=== PATIENT | male | born 1975 | race Caucasian/White ===

== ENCOUNTER 2018-10-12 01:09 | Emergency (ER) | payer MEDICAID ==
[~2018-10-12] VITALS: Ht 165.1 cm; Wt 76.2 kg
[2018-10-12 01:17] VITALS: Ht 165.1 cm; Wt 76.2 kg
[2018-10-12 03:32] LABS: BASOPHIL % 0.2 % (0-2); PLATELET COUNT 224 x10^3mcL (130-400)
[2018-10-12 03:35] LABS: RED CELL DISTRIBUTION WIDTH 16.3 % (11.5-14.5)
[2018-10-12 03:55] LABS: CALCIUM 8.8 mg/dL (8.5-10.1); CARBON DIOXIDE 24.8 mmol/L (21-32); CHLORIDE SERUM 103 mmol/L (98-107); CREATININE SERUM 0.9 mg/dL (0.7-1.3); GFR1 > 60 mL/min; GLUCOSE SERUM 108 mg/dL (74-106); POTASSIUM SERUM 3.7 mmol/L (3.5-5.1); SODIUM SERUM 138 mmol/L (136-145)
[2018-10-12 04:00] LABS: ALBUMIN 3.9 g/dL (3.4-5.0); ALKALINE PHOSPHATASE 119 U/L (46-116); ALT/SGPT 22 U/L (16-63); AST/SGOT 21 U/L (15-37); BILIRUBIN TOTAL 0.72 mg/dL (0.20-1.00); LIPASE 157 IU/L (73-393); TOTAL PROTEIN, SERUM 7.5 g/dL (6.4-8.2)
[2018-10-12 04:28] VITALS: BP 109/64
== END 2018-10-12 04:28 | disposition home or self-care (01) ==
LOC: ED 01:09
PROVIDERS: Emergency Medicine
DX: R10.12 Left upper quadrant pain (principal); R07.89 Other chest pain; R11.2 Nausea with vomiting, unspecified; R19.7 Diarrhea, unspecified; I10 Essential (primary) hypertension; I25.10 Atherosclerotic heart disease of native coronary artery without angina pectoris; Z90.89 Acquired absence of other organs
CPT/HCPCS: J1200; J1885; J2270; J7030; Q0162

== ENCOUNTER 2019-02-15 15:52 | Emergency (ER) | payer MEDICAID ==
[~2019-02-15] VITALS: Ht 165.1 cm; Wt 75.7 kg
[2019-02-15 16:01] VITALS: Ht 165.1 cm; Wt 75.7 kg
[2019-02-15 16:54] LABS: BASOPHIL % 0.3 % (0-2); PLATELET COUNT 225 x10^3mcL (130-400); RED CELL DISTRIBUTION WIDTH 14.3 % (11.5-14.5)
[2019-02-15 17:16] LABS: CALCIUM 9.2 mg/dL (8.5-10.1); CARBON DIOXIDE 27.3 mmol/L (21-32); CHLORIDE SERUM 107 mmol/L (98-107); GFR1 > 60 mL/min; GLUCOSE SERUM 95 mg/dL (74-106); POTASSIUM SERUM 3.8 mmol/L (3.5-5.1); SODIUM SERUM 142 mmol/L (136-145)
[2019-02-15 17:20] LABS: ALBUMIN 3.8 g/dL (3.4-5.0); ALKALINE PHOSPHATASE 127 U/L (46-116); ALT/SGPT 31 U/L (16-63); AST/SGOT 14 U/L (15-37); BILIRUBIN TOTAL 0.57 mg/dL (0.20-1.00); LIPASE 134 IU/L (73-393); TOTAL PROTEIN, SERUM 6.9 g/dL (6.4-8.2)
[2019-02-15 19:07] LABS: UA SPECIFIC GRAVITY 1.015 (1.005-1.035); microscopic required? YES; urine erythrocyte TRACE (NEGATIVE)
[2019-02-15] MEDS ORDERED: BRILINTA90 M1 PO (20:01)
[2019-02-15] MEDS ORDERED: ASPIR 8181 MG PO (20:04)
[2019-02-15] MEDS ORDERED: LISINOPRIL10 MG PO (20:04)
[2019-02-15] MEDS ORDERED: LIPI20 PO (20:04)
[2019-02-15] MEDS ORDERED: NITROSTAT0.4 MG SL (20:06)
[2019-02-15] MEDS ORDERED: DIPHENHYDRAMINE50 MG PO (20:06)
[2019-02-15] MEDS ORDERED: ZOF4 PO (20:07)
[2019-02-16 00:15] VITALS: BP 119/69
== END 2019-02-16 00:15 | disposition short-term general hospital (02) ==
LOC: ED 15:52
PROVIDERS: Emergency Medicine
DX: R07.89 Other chest pain (principal); R10.32 Left lower quadrant pain; R11.10 Vomiting, unspecified; R19.7 Diarrhea, unspecified; I10 Essential (primary) hypertension; E78.00 Pure hypercholesterolemia, unspecified; Z98.890 Other specified postprocedural states; Z88.8 Allergy status to other drugs, medicaments and biological substances; Z88.9 Allergy status to unspecified drugs, medicaments and biological substances; Z88.1 Allergy status to other antibiotic agents
CPT/HCPCS: 83880; J2270; J2405; J3010; J7030; Q0092; Q0163

== ENCOUNTER 2019-03-27 11:19 | Inpatient (IN) | payer MEDICAID ==
[~2019-03-27] VITALS: Ht 165.1 cm; Wt 76.8 kg
[~2019-03-27 11:19] MED LIST: ASPIR 8181 MG PO; BRILINTA90 M1 PO; DIPHENHYDRAMINE50 MG PO; LIPI20 PO; LISINOPRIL10 MG PO; NITROSTAT0.4 MG SL; ZOF4 PO
--- NOTE | 2019-03-27 11:30 | NUR ---
PER PT HE HAS BEEN HAVING LUQ/LLQ PAIN FOR THREE DAYS. PT STS THAT HE HAS VOMITED 4X SINCE LAST NIGHT. PT DENIES ANY BLOOD IN EMESIS. PT STS THAT HE ALSO HAS BEEN HAVING DIARRHEA WITH BRIGHT RED BLOOD YESTERDAY AND TODAY IS HAS INCREASED WITH SOME BLACK STOOL. PT STS HE HAS A HX OF C DIFF.,COLITIS AND CAD. PT STS THAT HE IS ALSO HAVING SOME NECK PAIN THAT STARTED WHEN HE WAS VOMITING. POS. BOWEL SOUNDS IN ALL 4 QUAD. PT DENIES ANY BODY ACHES OR FEVERS. DENIES ANY ANURIA. RESP E/U. VSS. WILL CONTINUE TO MONITOR. NO DISTRESS NOTED.
--- NOTE | 2019-03-27 11:56 | NUR ---
PT STS THAT HE DOES HAVE A RIDE HOME IF NEEDED.
[2019-03-27 12:23] LABS: BASOPHIL % 0.3 % (0-2); PLATELET COUNT 209 x10^3mcL (130-400)
[2019-03-27 12:29] LABS: microscopic required? YES; urine erythrocyte TRACE (NEGATIVE)
[2019-03-27 12:54] LABS: ALBUMIN 3.7 g/dL (3.4-5.0); ALKALINE PHOSPHATASE 110 U/L (46-116); ALT/SGPT 22 U/L (16-63); AST/SGOT 16 U/L (15-37); BILIRUBIN TOTAL 0.64 mg/dL (0.20-1.00); CARBON DIOXIDE 23.8 mmol/L (21-32); CHLORIDE SERUM 105 mmol/L (98-107); GFR1 > 60 mL/min; GLUCOSE SERUM 103 mg/dL (74-106); LIPASE 99 IU/L (73-393); POTASSIUM SERUM 3.9 mmol/L (3.5-5.1); SODIUM SERUM 138 mmol/L (136-145); TOTAL PROTEIN, SERUM 6.8 g/dL (6.4-8.2)
--- NOTE | 2019-03-27 12:58 | NUR ---
DPT REQUESTING MEDICINE FOR 'ITCHING', PER PT 'I GET ITCHY WHEN I HAVE ANXIETY AND PAIN'. DR. SANTOS INFOMRED.
--- NOTE | 2019-03-27 14:22 | NUR ---
PT AMBULATED TO RESTROOM WITH STEADY GAIT. PT PROVIDING STOOL SAMPLE.
--- NOTE | 2019-03-27 14:31 | NUR ---
DR. SANTOS AT BEDSIDE FOR RECTAL EXAM.
[2019-03-27 15:04] LABS: BASOPHIL % 0.1 % (0-2); PLATELET COUNT 218 x10^3mcL (130-400); RED CELL DISTRIBUTION WIDTH 14.4 % (11.5-14.5)
--- NOTE | 2019-03-27 15:46 | NUR ---
REPORT GIVEN TO CHIKA SCHMIDT TO ASSUME CARE OF PT.
--- NOTE | 2019-03-27 15:53 | NUR ---
RECEIVED PT FROM ED VIA [facility], CAME IN DUE TO ABDOMINAL PAIN W/ NAUSEA, VOMITING AND BLOODY DIARRHEA. AAOX4. C/O MILD HEADACHE. DENIES DIZZINESS. ABLE TO FOLLOW COMMANDS. NO SOB NOTED, LUNG SOUNDS CTA. DENIES CHEST PAIN/PRESSURE, SB W/ BBB. STATED THAT HE HAS 6/10 LEFT LOWER TO MEDIAL ABDOMINAL PAIN DESCRIBED SHARP, WORSE ON MOVEMENT. DENIES NAUSEA/VOMITING AT THIS TIME. 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 ABDOMEN IS SOFT. BOWEL SOUNDS ACTIVE. PT STATED THAT HIS FIRST STOOL TODAY WAS BLACK AND SECOND STOOL HAS BRIGHTER RED BLOOD. IV SITE PATENT AND INTACT. RECEIVED PT FROM ED W/ NS ONGOING. SIDE RAILS UPX2. CALL LIGHT ON REACH. PRIMARY NURSE CHIKA AT BEDSIDE FOR CONTINUITY OF CARE
[2019-03-27 16:13] VITALS: BP 107/60
[2019-03-27 17:00] LABS: FREE T4 0.96 ng/dL (0.76-1.46); FREE THYROXINE INDEX 1.8 ug/dL (1.4-4.5); T4(THYROXINE) 5.1 ug/dL (4.7-13.3)
[2019-03-27 17:02] LABS: T3 TOTAL 1.15 ng/mL
[2019-03-27 17:18] LABS: MAGNESIUM 1.8 mg/dL (1.8-2.4); PHOSPHOROUS 3.7 mg/dL (2.5-4.9)
[2019-03-27 17:19] LABS: CHOLESTEROL/HDL RATIO 5.2
--- NOTE | 2019-03-27 19:00 | NUR ---
PT IS LAYING DOWN IN BED WITH HOB UP RESTING. PT LOOKS TO BE IN NO ACUTE DISTRESS AT THIS TIME AND IS COMPLAINING OF 6/10 PAIN TO THE ABD. RESPIRATIONS EVEN AND UNLABORED ON ROOM AIR. IV SITE PATENT WITH NO SIGNS OF ERYTHEMA OR SWELLING WITH IV FLUIDS INFUSING. PT DENIES ANY NAUSEA OR DIARRHEA AT THIS TIME. BED IN LOWEST POSITION, CALL LIGHT WITHIN REACH. WILL ENODRSE TO ONCOMING SHIFT.
--- NOTE | 2019-03-27 19:20 | NUR ---
CARE ASSUMED FROM OUTGOING RN. PT RESTING COMFORTABLY IN BED. C/O ABD PAIN 03/05 AFTER PAIN MEDICATION GIVEN BY DAY SHIFT RN. EVEN AND UNLABORED RESPIRATIONS ON RA. IV PATENT ADN INTACT RUNNING FLUIDS PER EMAR. C/O ITCHINESS DUE TO STRESS OF HOSPITAL VISIT. WILL MAKE DRJustin AWARE. BED IN LOWEST POSITION. SIDE RAILS UPX2. CALL LIGHT WITHIN REACH. WILL CONTINUE TO MONITOR.
[2019-03-27 20:44] LABS: AMPHETAMINE QUAL UR NONE DETECTED (See below)
[2019-03-27 21:20] VITALS: BP 103/56
[2019-03-27 21:40] VITALS: Ht 165.1 cm; Wt 76.8 kg
--- NOTE | 2019-03-28 00:40 | NUR ---
PT RESTING COMFORTABLY IN BED. EVEN AND UNLABORED RESPIRATIONS ON RA. ABD PAIN RESOLVING. AT A 5/10 AT THIS TIME. IV PATENT AND INTACT RUNNING FLUIDS PER EMAR. BED IN LOWEST POSITION. SIDE RAILS UP X2. CALL LIGHT WITHIN REACH. WILL CONTINUE TO MONITOR.
[2019-03-28 06:10] VITALS: BP 122/63
[2019-03-28 06:59] LABS: BASOPHIL % 0.4 % (0-2); PLATELET COUNT 184 x10^3mcL (130-400); RED CELL DISTRIBUTION WIDTH 14.3 % (11.5-14.5)
--- NOTE | 2019-03-28 07:05 | NUR ---
PT SLEPT IN INTERVALS THROUGHOUT THE SHIFT. ALL NEEDS TENDED TO AND MET. ALL SCHEDULED MEDICATIONS GIVEN. C/O PAIN MEDICATED PER EMAR. BED IN LOWEST POSITION. SIDE RAILS UPX2. CALL LIGHT WITHIN REACH. WILL ENDORSE TO ONCOMING SHIFT.
[2019-03-28 07:15] VITALS: BP 102/58
[2019-03-28 07:21] LABS: CALCIUM 7.7 mg/dL (8.5-10.1); CARBON DIOXIDE 24.4 mmol/L (21-32); CHLORIDE SERUM 107 mmol/L (98-107); CREATININE SERUM 0.9 mg/dL (0.7-1.3); GFR1 > 60 mL/min; GLUCOSE SERUM 72 mg/dL (74-106); MAGNESIUM 1.7 mg/dL (1.8-2.4); PHOSPHOROUS 2.9 mg/dL (2.5-4.9); SODIUM SERUM 141 mmol/L (136-145)
--- NOTE | 2019-03-28 07:52 | NUR ---
PATIENT IS SLEEPING IN BED, AROUSABLE. NO ACUTE DISTRESS NOTED AT THIS TIME. PATIENT DENIES ACTIVE BLEEDING AT THIS TIME. NS IV INFUSING TO LAC AT 100ML/HR, IV SITE CDI & PATENT, NO S/S OF INFILTRATION. CALL LIGHT WITHIN REACH, BED IN LOW POSITION. WILL CONTINUE TO MONITOR FOR CHANGES.
--- NOTE | 2019-03-28 08:40 | NUR ---
PATIENT WENT DOWN FOR CT. IV TO LAC SALINE LOCK. WILL FOLLOW UP WITH RADIOLOGY.
--- NOTE | 2019-03-28 14:57 | NUR ---
Discount pharmacy card and list to low cost medical clinics given to patient by Jonathon Olson.
--- NOTE | 2019-03-28 15:04 | NUR ---
PATIENT WAS C/O SHARP ABDOMINAL PAIN 04/05, MEDICATED PATIENT WITH MORPHINE PER PROTOCOL (SEE EMAR). PATIENT REPOSITIONED SELF FOR COMFORT, EDUCATED PATIENT ON PAIN MANAGEMENT. WILL CONTINUE TO MONITOR FOR CHANGES.
[2019-03-28 16:25] VITALS: BP 107/66
--- NOTE | 2019-03-28 17:50 | NUR ---
PATIENT RESTING IN BED, NO ACUTE DISTRESS NOTED. PATIENT DENIES SOB, ON ROOM AIR. NO ACUTE CHANGES NOTED THROUGH OUT SHIFT, PATIENT IS STABLE. PATIENT C/O ABDOMINAL DISCOMFORT, BUT TOLERABLE. NO ACTIVE BLEEDING NOTED. IV TO LAC, SALINE, NO S/S OF INFILTRATION. ALL QUESTIONS AND CONCERNS ADDRESSED, CALL LIGHT WITHIN REACH. WILL CONTINUE TO MONITOR AND ENDORSE REPORT TO NIGHT RN.
--- NOTE | 2019-03-28 19:10 | NUR ---
REPORT GIVEN TO BRAYAN BLAIR. PATIENT AT THIS TIME DECIDED HE WANTED TO LEAVE. PATIENT REMOVED HIS OWN IV TO LAC & ARMBANDS. PATIENT STATED " IM NOT GETTING THE TREATMEANT I NEED, MY PAIN IS NOT BEING MANAGE. IM LEAVING AND NOT SIGNING ANYTHING AT THIS TIME." NO AMA FORM SIGNED PATIENT WALKED OUT IMMEDIATELY. ENDORSE TO CHARGE NURSE MARI THAT PATIENT LEFT.
--- NOTE | 2019-03-28 19:37 | NUR ---
DR MCNEIL AWARE PATIENT LEFT AMA.
== END 2019-03-28 19:10 | disposition left against medical advice (07) | DRG 244 ==
LOC: ED 11:19 → MU 14:47 → DU 14:47 → MU 15:56 → DU 15:58 → MU 18:51
PROVIDERS: Emergency Medicine; ADMIT Internal Medicine
DX: K57.33 Diverticulitis of large intestine without perforation or abscess with bleeding (principal); E78.5 Hyperlipidemia, unspecified; I10 Essential (primary) hypertension; I25.2 Old myocardial infarction; Z79.82 Long term (current) use of aspirin; Z68.27 Body mass index [BMI] 27.0-27.9, adult; Z95.5 Presence of coronary angioplasty implant and graft
CPT/HCPCS: 84439; 87046; 87046-59; G0378; J1200; J2270; J2405; J2543; J3010; J7030

== ENCOUNTER 2019-08-08 14:43 | Inpatient (IN) | payer OTHER ==
[~2019-08-08] VITALS: Ht 165.1 cm; Wt 82.4 kg
--- NOTE | 2019-08-08 14:58 | NUR ---
EKG DONE IN TRIAGE BY EMT
[2019-08-08 15:19] LABS: BASOPHIL % 0.6 % (0-2); PLATELET COUNT 230 x10^3mcL (130-400); RED CELL DISTRIBUTION WIDTH 15.3 % (11.5-14.5)
--- NOTE | 2019-08-08 15:19 | NUR ---
PER PT STS THAT HE HAS HAD LEFT MID PRESSURE ABDOMINAL PAIN SINCE YESTERDAY WITH NAUSE AND VOMITING X4. PER PT STS THAT HE HAS NO DYSURIA. PT STS THAT HE HAS PRESSURE CHEST PAIN THAT IS RADIATING TO HIS LEFT ARM. PT STS THAT HE HAS NUMBNESS TO LEFT ARM. PT STS ABDOMINAL PAIN RADIATE TO HIS LEFT MID BACK. -FACIAL DROOP,-DRIFT, +EQUAL ELEMENTARY VOCAL MUSIC TEACHER. NO NEUROLOGICAL DEFICITS NOTED. PT STS THAT HE HAS HAD 6 IL'S AND 10 STENTS PLACED. PT IS ALERT AND ORIENTED, SPEAKING IN CLEAR AND FULL SENTENCES. PT PLACED ON CM. NO DISTRESS NOTED. VSS. RESP E/U. WILL CONTINUE TO MONITOR. MD MADE AWARE. SKINS ARE PINK, WARM AND DRY. EKG PERFROMED IN TRIAGE.
[2019-08-08 15:35] LABS: CALCIUM 8.9 mg/dL (8.5-10.1); CARBON DIOXIDE 29.2 mmol/L (21-32); CHLORIDE SERUM 104 mmol/L (98-107); GFR1 > 60 mL/min; GLUCOSE SERUM 66 mg/dL (74-106); POTASSIUM SERUM 3.7 mmol/L (3.5-5.1); SODIUM SERUM 139 mmol/L (136-145)
[2019-08-08 15:43] LABS: ALBUMIN 4.1 g/dL (3.4-5.0); ALKALINE PHOSPHATASE 137 U/L (46-116); ALT/SGPT 41 U/L (16-63); AST/SGOT 21 U/L (15-37); BILIRUBIN TOTAL 0.44 mg/dL (0.20-1.00); TOTAL PROTEIN, SERUM 7.3 g/dL (6.4-8.2)
--- NOTE | 2019-08-08 16:07 | NUR ---
MEDICATED PER EMAR.
--- NOTE | 2019-08-08 16:07 | NUR ---
PT STS THAT HIS "GIRLFRIEND" IS GOING TO PICK HIM UP FROM [facility].
--- NOTE | 2019-08-08 17:57 | NUR ---
PT STS THAT HE NO LONG HAS ITCHING, BUT THAT HIS ABDOMINLA PAIN IS STILL 7/10. DR. GUZMAN MADE AWARE. VSS. RESP E/U. WILL CONTINUE TO MONITOR.
--- NOTE | 2019-08-08 18:20 | NUR ---
REPORT GIVEN TO NILSON SCHMIDT TO ASSUME CARE OF PT.
--- NOTE | 2019-08-08 18:33 | NUR ---
SPOKE TO NILSON SCHMIDT AND STS ROOM IS NOT CLEANA AND TO BRING PT UP AT 1900.
--- NOTE | 2019-08-08 19:27 | NUR ---
REPORT GIVEN TO MARTHA RN TO ASSUME CARE OF PT.
--- NOTE | 2019-08-08 19:34 | NUR ---
RECEIVED PT FROM ED VIA ERDELORIS, CAME IN DUE TO CHEST PAIN AND ABDOMINAL PAIN X4 DAYS. AAOX4. DENIES HEADACHE/DIZZINESS. ABLE TO FOLLOW COMMANDS. C/O MILD SOB, NO COUGH, O2 SAT=98%, RA. STATED THAT HE HAS 4/10 LEFT SIDED CHEST PAIN RADIATING ON THE LEFT ARM AND SHOULDER, SR W/ BBB ON THE MONITOR. DENIES NUMBNESS/TINGLING SENSATION. C/O 8/10 LEFT LOWER ABDOMINAL PAIN RADIATING ON THE MID-ABDOMEN AND MID-BACK. C/O MILD NAUSEA. HAD 2 LOOSE BM'S TODAY. VOIDS. IV SITE PATENT AND INTACT. C/O GENERALIZED BODY ITCHINESS, NO RASHES/ERYTHEMA NOTED. SIDE RAILS UPX2. CALL LIGHT ON REACH. ENDORSED TO PRIMARY NURSE AMINA FOR CONTINUITY OFCARE
[2019-08-08 19:43] LABS: MAGNESIUM 1.7 mg/dL (1.8-2.4)
[2019-08-08 19:46] LABS: CHOLESTEROL/HDL RATIO 4.5
[2019-08-08 19:56] VITALS: BP 127/61
[2019-08-08 20:04] VITALS: Ht 165.1 cm; Wt 82.4 kg
--- NOTE | 2019-08-08 22:30 | NUR ---
MEDICATED PT WITH NORCO PO FOR 6/10 AND PAIN, PT RESTING IN BED, NO ACUTE DISTRESS NOTED. ALL COMFORT AND SAFETY MEASURES PROVIDED FOR, PT ATE ONE SANDWICH AND JUICE PER REQUEST. WILL CONTINUE TO MONITOR.
--- NOTE | 2019-08-08 23:00 | NUR ---
UPON ASSESSMENT OF PT, PT SEEN RESTING IN BED W/ EYES CLOSED, NO S/S OF PAIN NOTED. ENVIRONMENT FREE OF CLUTTER, PERSONAL BELONGINGS WITHIN REACH, BED IN LOWEST POSITION, WILL CONTINUE TO MONITOR.
--- NOTE | 2019-08-09 05:00 | NUR ---
PT RESTED IN INTERVALS DURING SHIFT, NO ACUTE CHNAGES OCCURRING OVERNIGHT. PT CURRENTLY ON 2LNC FOR COMFORT D/T PT WOKE UP DURING EVENING STATING "I FELT LIKE I WAS GASPING FOR MY BREATH". PT MEDICATED X2 WITH MORPHINE FOR CHEST PAIN, STS IT FEELS LIKE "TIGHTNESS AND PRESSURE". PT DENIES N/V/D. IV SITE REMAINS PATENT TO LAC, SALINE LOCKED. NO REDNESS, SWELLING OR PAIN NOTED. ALL COMFORT AND SAFETY MEASURES PROVIDED FOR, CALL LIGHT WITHIN REACH, WILL CONTINUE TO MONITOR.
[2019-08-09 05:39] VITALS: BP 110/61
[2019-08-09 06:13] LABS: BASOPHIL % 0.6 % (0-2); PLATELET COUNT 204 x10^3mcL (130-400)
[2019-08-09 06:46] LABS: RED CELL DISTRIBUTION WIDTH 15.5 % (11.5-14.5)
[2019-08-09 07:02] LABS: CALCIUM 8.7 mg/dL (8.5-10.1); CHLORIDE SERUM 104 mmol/L (98-107); CREATININE SERUM 0.9 mg/dL (0.7-1.3); GFR1 > 60 mL/min; GLUCOSE SERUM 85 mg/dL (74-106); POTASSIUM SERUM 3.9 mmol/L (3.5-5.1); SODIUM SERUM 137 mmol/L (136-145)
--- NOTE | 2019-08-09 07:35 | NUR ---
ENDORSED ALL CARE TO DAYSHIFT NURSE, ALL QUESTIONS AND CONCERNS ADRESSED, CALL LIGHT WITHIN REACH, BED IN LOWEST POSITION. ALL COMFORT AND SAFETY MEASURES PROVIDED FOR.
--- NOTE | 2019-08-09 08:00 | NUR ---
ALERT AND ORIENTED. ON 02 2L NC FOR CARDIAC SUPPORT. C/O LEFT SIDE ABD PAIN 8/10 SHARP, LEFT SIDED CHEST PAIN 7/10 PRESSURE. ADMIN MORPHINE 2 MG IV. INDEPENDENT W ADL'S. TELE # [address] WVE AND BBB. CALL LIGHT WITHIN REACH. OBTAINED URINE SPECIMEN.
[2019-08-09 08:13] VITALS: BP 120/57
[2019-08-09 09:19] LABS: microscopic required? NO
[2019-08-09 09:41] LABS: urine erythrocyte NEGATIVE (NEGATIVE)
[2019-08-09 10:15] LABS: AMPHETAMINE QUAL UR NONE DETECTED (See below)
--- NOTE | 2019-08-09 11:45 | NUR ---
DR. IBRAHIM IN TO SEE PT. ADMIN ZOFRAN PO FOR NAUSEA.
[2019-08-09 12:36] VITALS: BP 99/47
[2019-08-09 16:20] VITALS: BP 131/68
--- NOTE | 2019-08-09 18:06 | NUR ---
SEEN BY DR. PISANO THIS AFTERNOON. STRESS TEST ORDERED FOR SUNDAY. PT MADE AWARE. INDEPENDENT W ADL'S. CONTINUES WITH LEFT SIDED CHEST AND LEFT SIDED ABD PAIN. RECEIVING MORPHINE AND NORCO FOR PAIN PRN. BOTH EFFECTIVE DONT LAST LONG ENOUGH. CALL MARIA M LUNDBERG IN REACH.
--- NOTE | 2019-08-09 19:20 | NUR ---
PT RECEIVED A/O X4, ABLE TO MAKE NEEDS KNOWN. SPOUSE AT BEDSIDE. TELE #1, SB, HR-[id number]. LUNG SOUNDS CTA, BREATHING IS EVEN AND UNLABORED ON 2L NC, PT DENIES SOB, NO RESP DISTRESS NOTED. ABD SOFT AND NONDISTENDED, DENIES N/V. VOIDS FREELY, BRP. AMBULATORY WITH STEADY GAIT. SKIN IS WARM AND DRY, INTACT. PT REPORTS MODERATE CHEST AND ABD PAIN, PER AM NURSE, WILL MEDICATE WITH PRN PAIN MED. SL TO LAC, PATENT AND INTACT, SITE WNL. NO ACUTE DISTRESS NOTED. BED IN LOWEST SETTING, SIDE RAILS UP X2, CALL LIGHT WITHIN REACH. WILL CONT TO MONITOR.
[2019-08-09 19:31] VITALS: BP 116/71
--- NOTE | 2019-08-09 21:40 | NUR ---
PT C/O ITCHINESS, PRN BENADRYL GIVEN PER EMAR. NO ACUTE DISTRESS NOTED. WILL CONT TO MONITOR.
--- NOTE | 2019-08-10 01:20 | NUR ---
PT C/O 04/05 ABD PAIN, PRN MORPHINE GIVEN ORDERED. NO ACUTE DISTRESS NOTED. WILL CONT TO MONITOR.
[2019-08-10 04:50] VITALS: BP 104/64
--- NOTE | 2019-08-10 06:00 | NUR ---
PT SLEPT AT INTERVALS THROUGHOUT THE EVENING. BREATHING IS EVEN AND UNLABORED, NO RESP DISTRESS NOTED. PT DENIES HAVING ANY PAIN AT THIS TIME. SL TO LAC, INTACT. NO ACUTE CHANGES ENCOUNTERED DURING SHIFT. ALL NEEDS MET AND ANTICIPATED. CALL LIGHT WITHIN REACH. WILL ENDORSE CARE TO AM NURSE.
--- NOTE | 2019-08-10 07:30 | NUR ---
WAKING AND ORIENTED. ON 02 2L NC FOR CARDIAC SUPPORT. ONGOING DISCOMFORT TO LEFT SIDE CHEST AND LEFT SIDE ABD. RECEIVED MORPHINE THIS AM DURING NOC SHIFT. PROVIDING SOME RELIEF. INDEPENDENT W ADL'S. TELE # [address] PISANO IS CONSULT. CALL LIGHT WITHIN REACH.
[2019-08-10 08:32] VITALS: BP 113/67
[2019-08-10 12:20] VITALS: BP 100/53
[2019-08-10 16:29] VITALS: BP 122/75
--- NOTE | 2019-08-10 18:30 | NUR ---
ALERT AND ORIENTED. CONTINUES O HAVE LEFT SIDED CHEST AND LEFT SIDED ABD PAIN. NORCO AND MORPHINE PRN. SEEN BY DR. Paul ISBELL TODAY. STRESS TST ORDERED FOR TOMORROW AM [address] PISANO. SL TO LEFT AC PATENT. VSS. CALL LIGHT WITHIN REACH. INDEPENDENT W ADL'S.
--- NOTE | 2019-08-10 19:15 | NUR ---
PT RECEIVED A/O X4, ABLE TO MAKE NEEDS KNOWN. TELE #1, PT DENIES HAVING ANY CP/PRESSURE. LUNG SOUNDS CTA, BREATHING IS EVEN AND UNLABORED ON 2L NC, PT DENIES SOB, NO RESP DISTRESS NOTED. ABD SOFT AND NONDISTENDED, DENIES N/V. VOIDS FREELY, BRP. AMBULATORY WITH STEADY GAIT. SKIN IS WARM AND DRY, INTACT. SL TO LAC, PATENT AND INTACT, SITE WNL. NO ACUTE DISTRESS NOTED. PT WILL BE NPO AFTER MIDNIGHT FOR SCHEDULED STRESS TEST IN THE AM, PT AWARE AND VERBALIZES UNDERSTANDING. BED IN LOWEST SETTING, SIDE RAILS UP X2, CALL LIGHT WITHIN REACH. WILL CONT TO MONITOR.
[2019-08-10 20:42] VITALS: BP 104/62
--- NOTE | 2019-08-10 21:58 | NUR ---
PT C/O 7/10 LEFT-SIDED CP AND 7/10 ABD PAIN, PRN MORPHINE GIVEN ORDERED. NO ACUTE DISTRESS NOTED. WILL CONT TO MONITOR.
--- NOTE | 2019-08-11 00:04 | NUR ---
PT RESTING IN BED WITH EYES CLOSED, BUT IS EASILY AROUSABLE. BREATHING IS EVEN AND UNLABORED, NO RESP DISTRESS NOTED. NO S/S OF PAIN OBSERVED. PT NPO AT THIS TIME FOR STRESS TEST IN AM, NPO SIGN POSTED. NO ACUTE DISTRESS OBSERVED. CALL LIGHT WITHIN REACH. WILL CONT TO MONITOR.
--- NOTE | 2019-08-11 03:53 | NUR ---
PT C/O 7/10 LEFT-SIDED CP AND 8/10 ABD PAIN, PRN MORPHINE IVP GIVEN ORDERED. NO ACUTE DISTRESS NOTED. WILL CONT TO MONITOR.
--- NOTE | 2019-08-11 04:47 | NUR ---
PT SLEPT AT INTERVALS THROUGHOUT THE EVENING. BREATHING IS EVEN AND UNLABORED, NO RESP DISTRESS NOTED. PT HAD TWO EPISODES OF CP AND ABD PAIN DURING THE EVENING, PRN PAIN MEDS GIVEN. PT DENIES HAVING ANY PAIN AT THIS TIME. PT NPO AT THIS TIME FOR SCHEDULED NM REST/STRESS TEST IN THE AM. SL TO LAC INTACT. NO ACUTE CHANGES ENCOUNTERED DURING SHIFT. ALL NEEDS MET AND ANTICIPATED. CALL LIGHT WITHIN REACH. WILL ENDORSE CARE TO AM NURSE.
[2019-08-11 05:37] VITALS: BP 109/63
--- NOTE | 2019-08-11 08:00 | NUR ---
RECEIVED APATIENT ALERT AND ORIENTED TIMES FOUR. MPO FOR STRESS TEST TODAY AND HAS BEEN WITH INTERMITTANT PAIN TO THE ABDOMEN AND RADIATING TO THE SIDE AND BACK. PATIENT IS AMBULATORY AND HAS BEEN WITH CLEAR BREATH SOUNDS AND BOWEL SOUNDS ACTIVE. HISTORY OF DIVERTICUOSIS AND HAS NO DIVERTICULITIS AT THIS TIME. PATIENT HAS PREVIOUS HISTORY OF CARDIAC PROBLEMS AND HAS BEEN STENTS AND TN NOTED. PATIENT HAS BEEN WITH SKIN INTACT AND PATIENT HAS ON THE CHEST XRAY TRACE PLEURAL EFFUSION. PATIENT HAS ALSO BEEN POSTIVE FOR OPIATES AND THC ON THE URINE DRUG SCREEN. VITALS THIS AM AT 97.2, 48, 18, 109/63, 99% ON ROOM AIR. PULSES STRONG TO THE EXTREMITIES AND PATIENTASH BEEN WITH BBB AND ELEVATED T WAVE AND THE TROPONINS HAVE BEEN NEGATIVE THIS ADMIT. LAST PAIN MEDICATION AT 2300 LAST NIGHT. WILL CONTINUE TO MONITOR INDICATED.
[2019-08-11 08:32] VITALS: BP 130/74
--- NOTE | 2019-08-11 09:10 | NUR ---
DOWN FOR STRESS TEST. REQUESTED PAIN MEDICATION FOR ABDOMINAL AND FLANK PAIN BUT DUE TO THE STRESS TEST WAS NOT ABLE TO GIVE AND EXPLAINED THE RATIONAL FOR THIS. ADVISED THE STAFF IN THE NUCLEAR MED TO CALL IF NEEDED AND PATIETN CAN NOT TOLERATE THE PAIN. MORPHINE AND SKEW THE TEST. AWAITING ARRIVAL BACK THE FLOOR POST THE TEST.
[2019-08-11 12:19] VITALS: BP 142/76
--- NOTE | 2019-08-11 12:24 | NUR ---
RECEIVED POST MELODY AND WANTS PAIN MEDICATION. GAVE HIS MORNING MEDICATION AND MORPHINE ORDERED. WILL CONTINUE TO MONITOR. I
--- NOTE | 2019-08-11 16:23 | NUR ---
PATIENT STRESS TEST IS NEGATUVE AND CALLED DR IBRAHIM TO SEE IF DISCHARGING TO HOME TODAY. CARLOS ALBERTO IAS ANXIOUS TO SEE HIS SAIMA AND OTHERWISE STAFF TO TAKE HIM TO THE LOBBY WITH MONITOR FOR PATIENT TO VISIT. SAIMA IS 1 YEAR OLD. AWAITING CALL BACK AT THIS TIME.
[2019-08-11 16:41] VITALS: BP 142/76
[2019-08-11 16:44] VITALS: BP 132/75
== END 2019-08-11 18:01 | disposition home or self-care (01) | DRG 198 ==
LOC: ED 14:43 → DU 17:52
PROVIDERS: ADMIT Internal Medicine
DX: I25.110 Atherosclerotic heart disease of native coronary artery with unstable angina pectoris (principal); E78.5 Hyperlipidemia, unspecified; F12.10 Cannabis abuse, uncomplicated; I10 Essential (primary) hypertension; K57.30 Diverticulosis of large intestine without perforation or abscess without bleeding; I25.2 Old myocardial infarction; Z68.28 Body mass index [BMI] 28.0-28.9, adult; Z95.5 Presence of coronary angioplasty implant and graft; Z82.49 Family history of ischemic heart disease and other diseases of the circulatory system; Z79.899 Other long term (current) drug therapy
CPT/HCPCS: A9500; G0378; J2270; J2405; J2785; Q0162; Q0163

== ENCOUNTER 2019-12-21 22:21 | Inpatient (IN) | payer OTHER ==
[~2019-12-21] VITALS: Ht 165.1 cm; Wt 72.1 kg
[2019-12-21 22:30] VITALS: Ht 165.1 cm; Wt 72.1 kg
[2019-12-21 23:30] LABS: BASOPHIL % 0.2 % (0-2); PLATELET COUNT 223 x10^3mcL (130-400)
[2019-12-21 23:32] LABS: RED CELL DISTRIBUTION WIDTH 16.3 % (11.5-14.5)
[2019-12-21 23:43] LABS: CARBON DIOXIDE 25.8 mmol/L (21-32); CHLORIDE SERUM 105 mmol/L (98-107); CREATININE SERUM 0.9 mg/dL (0.7-1.3); GFR1 > 60 mL/min; GLUCOSE SERUM 93 mg/dL (74-106); POTASSIUM SERUM 3.7 mmol/L (3.5-5.1); SODIUM SERUM 141 mmol/L (136-145)
[2019-12-21 23:47] LABS: ALBUMIN 4.1 g/dL (3.4-5.0); ALKALINE PHOSPHATASE 122 U/L (46-116); ALT/SGPT 41 U/L (16-63); AST/SGOT 28 U/L (15-37); BILIRUBIN TOTAL 0.6 mg/dL (0.20-1.00)
[2019-12-22] MEDS ORDERED: BRILINTA90 M1 PO (00:45)
[2019-12-22] MEDS ORDERED: ASPIRIN CHILDRE81 MG PO (00:46)
[2019-12-22] MEDS ORDERED: NIT0.4 SL (00:46)
[2019-12-22] MEDS ORDERED: DIPHENHYDRAMINE50 M3 PO (00:46)
[2019-12-22] MEDS ORDERED: ATORVASTATIN CA80 M1 PO (00:46)
[2019-12-22] MEDS ORDERED: CARVEDILOL ER40 MG PO (00:47)
[2019-12-22 02:08] VITALS: BP 113/71
[2019-12-22 05:15] VITALS: BP 142/72
[2019-12-22 06:20] LABS: BASOPHIL % 0.3 % (0-2); PLATELET COUNT 193 x10^3mcL (130-400)
[2019-12-22 06:33] LABS: RED CELL DISTRIBUTION WIDTH 16.5 % (11.5-14.5)
[2019-12-22 06:57] LABS: CALCIUM 8.9 mg/dL (8.5-10.1); CARBON DIOXIDE 26.7 mmol/L (21-32); CHLORIDE SERUM 104 mmol/L (98-107); CREATININE SERUM 0.9 mg/dL (0.7-1.3); GFR1 > 60 mL/min; GLUCOSE SERUM 90 mg/dL (74-106); LIPASE 248 IU/L (73-393); PHOSPHOROUS 3.7 mg/dL (2.5-4.9); POTASSIUM SERUM 3.7 mmol/L (3.5-5.1); SODIUM SERUM 139 mmol/L (136-145); TRIGLYCERIDES 177 mg/dL (<150)
[2019-12-22 06:58] LABS: CHOLESTEROL 109 mg/dL (<200); CHOLESTEROL/HDL RATIO 5.2; HDL CHOLESTEROL 21 mg/dL (40-60)
[2019-12-22 07:06] LABS: FREE T4 0.97 ng/dL (0.76-1.46); FREE THYROXINE INDEX 2.1 ug/dL (1.4-4.5); T4(THYROXINE) 6.1 ug/dL (4.7-13.3)
[2019-12-22 07:47] VITALS: BP 119/67
[2019-12-22 07:49] LABS: UA SPECIFIC GRAVITY >=1.030 (1.005-1.035); microscopic required? YES; urine erythrocyte NEGATIVE (NEGATIVE)
[2019-12-22 07:49] LABS: T3 TOTAL 1.37 ng/mL
[2019-12-22 08:16] LABS: AMPHETAMINE QUAL UR NONE DETECTED (See below)
[2019-12-22 11:59] VITALS: BP 106/68
[2019-12-22 16:10] VITALS: BP 121/65
[2019-12-22] MEDS ORDERED: RAN500A PO (16:43)
[2019-12-22 16:59] VITALS: BP 106/68
== END 2019-12-22 18:46 | disposition home or self-care (01) | DRG 198 ==
LOC: ED 22:21 → DU 12-22 00:35 → MU 12-22 16:19
PROVIDERS: ADMIT Family Medicine
DX: R07.89 Other chest pain (principal); I25.10 Atherosclerotic heart disease of native coronary artery without angina pectoris; E78.5 Hyperlipidemia, unspecified; I10 Essential (primary) hypertension; I25.2 Old myocardial infarction; Z95.5 Presence of coronary angioplasty implant and graft; Z79.82 Long term (current) use of aspirin; Z91.041 Radiographic dye allergy status; Z88.8 Allergy status to other drugs, medicaments and biological substances; Z79.899 Other long term (current) drug therapy
CPT/HCPCS: 84439; 87046; 87046-59; G0378; J1200; J2270; J2405; J7030; Q0092